=== PATIENT | female | born 1960 | race African-American/Black ===

== ENCOUNTER 2016-08-23 09:08 | Inpatient (IN) | payer OTHER ==
[2016-08-23] MEDS ORDERED: D50W SYRINGE ONE (09:42)
[2016-08-23] MEDS: D50W SYRINGE IV ONE ×2 (09:45→14:21)
[2016-08-23 10:50] LABS: MANUAL DIFF NEEDED? NO
[2016-08-23 10:58] LABS: BASO% 0.1 % (0.0-0.8); HEMATOCRIT 29.7 % (37.0-47.0); HEMOGLOBIN 9.8 g/dL (12.0-16.0); IMM GRAN# 0.03 X1000 (0.0-0.04); IMM GRAN% 0.3 % (0.0-0.5); LYMPH# 1.14 X1000 (1.2-3.4); MCH 30.3 PG (27-31); MONO# 0.68 X1000 (0.11-0.59); MONO% 7.1 % (1.7-9.3); MPV 11.8 FL (7.4-10.4); NEUT% 80.5 % (42.2-75.2); PLT 261 X1000 (130-400); RBC 3.23 XMIL (4.2-5.4)
[2016-08-23 12:24] LABS: URINE CULTURE NEEDED? NO; URINE MICRO REVIEW NEEDED? NO; URINE SOURCE CATH
--- NOTE | 2016-08-23 12:36 | Diag Imaging Result Document ---
PROCEDURE NAME: HEAD/C-SPINE W/O CONTRAST - 08/23/2016 CT HEAD WITHOUT CONTRAST: A dose-reduction protocol was used. Compared with 09/25/2014. FINDINGS: There are chronic microvascular ischemic changes similar to the previous exam. There is no evidence of recent infarct, although acute infarcts may not be immediately visible. There is no evidence of intracranial hemorrhage, mass effect, or midline shift. There is no skull fracture. IMPRESSION: Chronic microvascular ischemic changes similar to previous exam. No evidence of intracranial injury. No hemorrhage or mass effect. CT CERVICAL SPINE WITHOUT CONTRAST: Axial and reformatted sagittal and coronal images are obtained. A dose-reduction protocol was used. No comparison exam. FINDINGS: There are artifacts from motion at the C1 and C2 levels which limit detail. There is multilevel degenerative disease. The degenerative disease is most prominent at C4-5, where there are large anterior osteophytes, and there is posterior disk protrusion with posterior osteophytes. There is associated mild spinal stenosis at C4-5. There is no fracture identified. There is no subluxation seen. There is no precervical soft tissue swelling identified. There are apparent atherosclerotic calcifications noted at the right carotid bulb region. IMPRESSION: 1. Multilevel degenerative disease, most substantial at C4-5. 2. Artifacts from motion which limit detail at C1 on C2. No fracture identified. No subluxation.
--- NOTE | 2016-08-23 12:38 | Diag Imaging Result Document ---
PROCEDURE NAME: PELVIS W/O CONTRAST - 08/23/2016 CT BONY PELVIS WITHOUT CONTRAST: Axial and reformatted coronal and sagittal images are obtained. A dose-reduction protocol was used. No comparison exam. FINDINGS: There is no fracture identified. There is no hip dislocation seen. There are degenerative changes of L4-5 facets noted. IMPRESSION: No evidence of fracture or dislocation.
[2016-08-23 12:51] LABS: BILIRUBIN URINE SMALL (NEGATIVE); BLOOD URINE NEGATIVE (NEGATIVE); COLOR YELLOW; GLUCOSE URINE TRACE mg/dL (NEGATIVE); LEUKOCYTES URINE NEGATIVE (NEGATIVE); NITRITE URINE NEGATIVE (NEGATIVE); PH URINE 5.5; PROTEIN URINE 50 mg/dL (NEGATIVE); SP GRAVITY URINE 1.022; TURBIDITY URINE HAZY (CLEAR); UR EPITHELIAL CELLS <10 /HPF (<10); URINE BACTERIA NEGATIVE /HPF; URINE RBC <10 /HPF (<10); URINE WBC <10 /HPF (<10); UROBILINOGEN URINE NORMAL (NORMAL)
--- NOTE | 2016-08-23 13:03 | PROVIDER DOCUMENTATION ---
HPI-Musculoskeletal Pain/Inj - GENERAL Source: patient, EMS - HX OF PRESENT ILLNESS-MUSKULOSKELTAL Quality of Pain: reports: aching Severity in ED: mild Onset/Duration: 4-6 hours ago Timing: still present Modifying Factors: improves with: movement Any recent injury?: Yes Similar Symptoms Previously?: No Recently seen or treated by another doctor?: No - FALL INJURY Location of Pain/Injury: reports: lower extremity Pain Radiation: reports: no radiation Reason for Fall: reports: unknown Symptoms prior to fall:: reports: none Loss of Consciousness: no loss of consciousness Injury Associated Symptoms: denies: back/neck pain, dizziness, shortness of breath, weakness - HIP/PELVIS PAIN/INJURY Hip Pain Location: reports: hip (R), hip (L) Pain Radiation: reports: no radiation Context / Method of Injury: reports: fall Associated Symptoms: reports: denies symptoms - LOWER EXTREMITY PAIN/INJURY Lower Extremities Pain: hip: bilateral Context / Method of Injury: reports: fell Associated Symptoms: reports: denies symptoms <Doyle Mclean - Last Filed: 08/23/16 13:59> <Rd Maldonado - Last Filed: 08/23/16 14:31> - GENERAL Chief Complaint: Hip Pain Stated Complaint: Fall/hip pain Time Seen by Provider: 08/23/16 09:08 - HX OF PRESENT ILLNESS-MUSKULOSKELTAL Nature of Presenting Problem: PT WAS FOUND IN THE FLOOR BY THE [facility] STAFF 3 FEET FROM HER BED PT IS [facility] WHEN THE [facility] STAFF MOVED THE PT BACK TO THE BED SHE WAS COMPLAINING OF RIGHT AND LEFT HIP PAIN MORE PAIN TO THE RIGHT HIP EMS WAS CALLED NO D STICK DONE BY [facility]P STAFF OR EMS WHEN BLOOD SUGAR WAS CHECKED IN THE ED IT WAS 20. (Doyle Mclean) Review of Systems - Adult - REVIEW OF SYSTEMS - ADULT Constitutional: denies: chills, fever, night sweats Eyes: denies: discharge, blurred vision, redness Ears, Nose, Mouth & Throat: denies: epistaxis, mouth swelling, throat swelling Cardiovascular: denies: chest pain, irregular heart rate, palpitations Respiratory: denies: cough, shortness of breath, wheezing Gastrointestinal: denies: abdominal pain, diarrhea, nausea, vomiting Genitourinary: denies: dysuria, flank pain, hematuria Musculoskeletal: reports: other (BILATERIAL HIP PAIN). denies: back pain, neck pain Integumentary: denies: hives, itching, rash Neurological: denies: dizziness/vertigo, loss of balance, syncope Psychiatric: denies: depression, emotional problems, suicidal thoughts <Doyle Mclean - Last Filed: 08/23/16 13:59> Past History - Adult - PAST MEDICAL HISTORY-ADULT Review of Records: reports: Nursing Assessment Review, Medications Reviewed Cardiovascular: reports: cardiac disease, CAD, CHF, HTN, hyperlipidemia, other ( 2 occluded) Respiratory: reports: asthma Musculoskeletal: reports: arthritis Neurological: reports: CVA (2 mos ago/ rt sided weakness which has resolved), headaches/migraines Endocrine/Immune: reports: Diabetes, thyroid disorder Other Conditions: reports: MRSA - PRIOR SURGERIES/PROCEDURES Surgical/Procedure History: reports: cardiac stent, hysterectomy, BTL, , other (left breast cyst removed.) - IMMUNIZATION STATUS Childhood Immunizations: NUTD Flu Vaccine: NUTD - FAMILY HISTORY Family History: reviewed, not pertinent - SOCIAL HISTORY Smoking: denies Substance Use: none/never Living Situation: care facility <Doyle Mclean - Last Filed: 08/23/16 13:59> Physical Exam-Injury Related - Physical Exam-Injury Related Initial Vital Signs Reviewed: Yes General Appearance: appears well, alert, no apparent distress Eyes: PERRL/EOMI, pink conjunctivae, fundi clear, no AV nicking Head, Ears, Nose, Mouth & Throat: normocephalic/atraumatic, moist mucous membranes, normal ENT inspection, TMs normal Neck: non-tender, full range of motion, supple, normal inspection Respiratory: chest non-tender, lungs clear, normal breath sounds, no pleuratic chest pain, no respiratory distress, no accessory muscle use Cardiovascular: normal peripheral pulses, regular rate, rhythm, no edema, no gallop, no JVD, no murmur Abdominal Exam: normal bowel sounds, non tender, soft, no organomegaly, no pulsatile mass Back Exam: normal inspection, no CVA tenderness, no vertebral tenderness Extremity: normal gait, no pedal edema, no calf tenderness, normal capillary refill, pelvis stable, other (painfull range of motion) Integumentary: normal color, warm/dry Psych/Mental Status: normal mood/affect - Glascow Coma Score Best Eye Response (Pito): (4) open spontaneously Best Verbal Response (Pito): (4) confused conversation Best Motor Response (Ptio): (6) obeys commands Bailey Total: 14 <Doyle Mclean - Last Filed: 08/23/16 13:59> Progress - REASSESSMENT Reassessment #1 Time Reassessed: 11:00 (um=698 after iv meds) Status: improving Reassessment #2 Time Reassessed: 13:00 (pt still not eating her meal) Status: improving Reassessment #3 Time Reassessed: 14:26 (pt bs down to 58...still not cooperating w/her po intake ...pt w k=6.4 and renal disfx ,on po hypoglycemiant ..will admit) Status: worsening - CONSULTS/PCP/HOSPITALIST Notification #1 *Consult/PCP/Hospitalist*: dr bowen Time Discussed: 14:28 Consult Disposition: Will see in ED, Admit <Rd Maldonado - Last Filed: 08/23/16 14:31> Departure <Doyle Mclean - Last Filed: 08/23/16 13:59> - Departure Time of Disposition Order: 14:28 Certified Medical Emergency: Emergent <Rd Maldonado - Last Filed: 08/23/16 14:31> - Departure DIAGNOSIS: Hypoglycemia secondary to sulfonylurea, Dementia, Poor ability to follow directions Disposition: ADMITTED INPATIENT 09 Condition: Stable Physician Attestation
[2016-08-23 13:24] LABS: CALCIUM 9.4 mg/dL (8.8-10.2); POTASSIUM 6.2 mmol/L (3.5-5.1); TOTAL BILIRUBIN 0.36 mg/dL (0.20-1.00); TOTAL PROTEIN 6.2 g/dL (6.3-8.3)
--- NOTE | 2016-08-23 13:38 | Diag Imaging Result Document ---
PROCEDURE NAME: CHEST-PORTABLE - 08/23/2016 PORTABLE CHEST: Compared with 09/08/2014. FINDINGS: Heart size is normal. There is left midlung granuloma from old granulomatous disease. The lungs otherwise appear clear. There is no pleural effusion or pneumothorax identified. IMPRESSION: No evidence of acute disease.
[2016-08-23] MEDS: D5 NS 500 ML IV ONE ×2 (14:21→15:23)
[2016-08-23] MEDS ORDERED: D50W SYRINGE IV ONE (14:21)
[2016-08-23] MEDS ORDERED: SODIUM BICARBONATE 8.4% IV PUSH ONE (14:21)
[2016-08-23] MEDS ORDERED: CALCIUM CHLORIDE 1 GM in NS 100 ML IV ONE (14:22)
[2016-08-23] MEDS ORDERED: KAYEXALATE PO ONE (14:22)
[2016-08-23] MEDS ORDERED: D5 NS 1,000 ML ONE (15:16)
--- NOTE | 2016-08-23 17:41 | Diag Imaging Result Document ---
PROCEDURE NAME: FEMUR MIN 2 VIEWS RIGHT - 08/23/2016 RIGHT FEMUR, 4 VIEWS: FINDINGS: There is no fracture identified. There is no hip dislocation identified. There is no destructive or sclerotic lesion identified. IMPRESSION: Unremarkable exam.
[2016-08-23 18:15] LABS: UR CREAT RANDOM 377.6 mg/dL (11-20)
[2016-08-23] MEDS ORDERED: TYLENOL PO PRN (18:20)
[2016-08-23] MEDS ORDERED: D50W SYRINGE IV PRN (18:20)
[2016-08-23] MEDS ORDERED: ZOFRAN IV PRN (18:20)
[2016-08-23] MEDS: NS 1,000 ML IV SCH (18:35)
[2016-08-23 19:52] LABS: CALCIUM 10.2 mg/dL (8.8-10.2); POTASSIUM 4.5 mmol/L (3.5-5.1)
--- NOTE | 2016-08-23 20:29 | HISTORY AND PHYSICAL ---
PRIMARY CARE PROVIDER: Dr. Sophie Russo. CHIEF COMPLAINT: Fall and low blood glucoses. HISTORY OF PRESENT ILLNESS: Ms Yola Thornton is a 55-year-old female with a history of hypertension, asthma, diabetes, CVA, hyperlipidemia, a history of cocaine use, history of anemia who has been residing at [facility]. Apparently according to the hospice staff that is at the bedside she has had falls over the last 2-3 days. She had fallen at 0530 this morning. The nurse at the bedside her hospice care nursing team states that she just seemed different. She was wobbling. Upon arrival her blood glucose is 20. She has received D50, it continues to occasionally drop. Also it is found that she is significantly dehydrated with PILAR and hyperkalemic. She received bicarb and calcium and D50 to aid in decreasing the potassium level. Per outside hospital care she has been followed by [facility] who is stating that she is a do not resuscitate. The sisters are at the bedside who agree. Will admit her to the medical floor, give her IV fluid hydration, continue to treat her hypoglycemia and stop her oral diabetic medications. Continue to trend her potassium level and her BUN and creatinine. PAST MEDICAL HISTORY: Diabetes, hypertension, asthma, stroke, hyperlipidemia, anemia, cocaine use in the past, dementia. SURGICAL HISTORY: None. SOCIAL HISTORY: Denies tobacco, alcohol or illicit drug use. Is currently with [facility] and residing at [facility] . FAMILY HISTORY: Noncontributory. ALLERGIES: No known drug allergies. HOME MEDICATIONS: Aspirin 325 p.o. daily, Aricept 10 mg p.o. daily, Celexa 20 mg p.o. daily, Amaryl 1 mg p.o. daily, Lipitor 80 mg p.o. nightly, lisinopril 20 mg p.o. daily, metformin 500 mg p.o. twice daily, Seroquel 25 mg p.o. nightly, Synthroid 75 mcg p.o. daily, Norvasc 10 mg p.o. daily. Please add to past medical history dementia. REVIEW OF SYSTEMS: 14 point review of systems were all negative except those mentioned above HPI. She denies pain but when she tried to move her right leg she felt pain. Otherwise negative. She states she remembers falling. Never lost consciousness. LABORATORY DATA: White blood cells 9000, hemoglobin 9, hematocrit 29, platelet count 261,000. Sodium 137, potassium 6.2, BUN 52, creatinine 3.9, glucose 62 to 204, liver enzymes normal, total protein 6.2, albumin 3.0. Urinalysis 50 protein, trace glucose, small bilirubin otherwise negative. IMAGING: Chest x-ray, no acute findings. Pelvic CT. No evidence of fracture or dislocation. Head and cervical spine CT. Multilevel degenerative disease most substantial at C4-C5 and chronic microvascular ischemic changes similar to previous examination. No evidence of intracranial injury, no hemorrhage or mass effect. PHYSICAL EXAMINATION: VITAL SIGNS: Temperature 97.3 degrees, heart rate 113, respiratory rate 16, blood pressure 109/70, O2 saturation 100% on room air. She is 5 feet 4 inches tall, 190 pounds with a BMI 32.6. GENERAL: Ms. Yola Thornton is a 55-year-old female in no acute distress able to answer most questions appropriately. She does have baseline dementia. HEENT: Atraumatic, normocephalic. Pupils equal, round, reactive to light. Extraocular movements intact. Mucous membranes are dry. NECK: No JVD or carotid bruits noted. CARDIOVASCULAR: S1, S2, tachycardic rate, rhythm, no rubs, gallops, murmurs. PULMONARY: Clear to auscultate, bilateral breath sounds. No accessory muscle use or work of breathing noted. GI: Soft, nontender, nondistended. Positive bowel sounds x4. EXTREMITIES: No edema noted, +2 dorsalis and radial pulses. NEUROLOGIC: A and O times name only. Followed commands. Is able to move all extremities except for her right leg she would move it some but would not move it completely given that it would cause her pain. SKIN: Warm, dry, intact. ASSESSMENT AND PLAN: 1. Acute kidney injury likely secondary to dehydration. Will do IV fluid hydration, send off urine studies to determine if it is prerenal, stopped nephrotoxic medications. 2. Hypoglycemia possibly causing a fall. She did have a blood glucose of 20. She has received D50. Will do q.2 hour Accu-Cheks with p.r.n. D50. 3. Fall. She will be on fall precautions. There is some pain in her right leg, pelvic CT was negative. Will do an x-ray of the femur. 4. Diabetes mellitus type 2. Please see #2. 5. Hyperkalemia. She received IV calcium and D50 and bicarb, will recheck a BMP at 8 p.m. 6. Hypertension stable. 7. Asthma stable. 8. Dementia. Continue home medications. 9. Deep venous thrombosis prophylaxis. Will do SCDs. 10. Gastrointestinal prophylaxis. Proton pump inhibitor. 11. Do Not Resuscitate level 1. Was on hospice care prior to admission. 12. Anemia noted. Dictated by [employer] for Mark Flores MD
[2016-08-23] MEDS: SEROQUEL PO SCH (21:39)
[2016-08-23] MEDS: LIPITOR PO SCH (21:39)
[2016-08-24] MEDS: PRILOSEC PO SCH (05:59)
[2016-08-24 06:50] LABS: MANUAL DIFF NEEDED? NO
[2016-08-24 06:52] LABS: BASO% 0.1 % (0.0-0.8); EOS# 0.01 X1000 (0.0-0.7); EOS% 0.1 % (0.0-10.0); HEMATOCRIT 28.4 % (37.0-47.0); HEMOGLOBIN 9.3 g/dL (12.0-16.0); IMM GRAN# 0.03 X1000 (0.0-0.04); IMM GRAN% 0.4 % (0.0-0.5); LYMPH% 17.8 % (20.5-51.1); MCH 29.6 PG (27-31); MCHC 32.7 g/dL (33-37); MCV 90.4 FL (81-99); MONO# 0.83 X1000 (0.11-0.59); MONO% 11.3 % (1.7-9.3); MPV 11.3 FL (7.4-10.4); NEUT% 70.3 % (42.2-75.2); PLT 327 X1000 (130-400); RBC 3.14 XMIL (4.2-5.4)
[2016-08-24 06:57] LABS: INR 1.21; PROTIME 12.8 Seconds (9.2-11.7)
[2016-08-24 07:07] LABS: ALBUMIN 2.9 g/dL (3.5-5.0); CALCIUM 9.7 mg/dL (8.8-10.2); MAGNESIUM 1.6 mg/dL (1.5-2.7); POTASSIUM 4.9 mmol/L (3.5-5.1); TOTAL BILIRUBIN 0.47 mg/dL (0.20-1.00); TOTAL PROTEIN 6.6 g/dL (6.3-8.3)
[2016-08-24] MEDS: ARICEPT PO SCH (09:08)
[2016-08-24] MEDS: CELEXA PO SCH (09:08)
[2016-08-24] MEDS: SYNTHROID PO SCH (09:08)
[2016-08-24] MEDS: NORVASC PO SCH (09:08)
[2016-08-24] MEDS: ASPIRIN PO SCH (09:08)
--- NOTE | 2016-08-24 13:52 | PROGRESS NOTE ---
DATE: 08/24/2016 SUBJECTIVE: Patient reports feeling fine. Denies any pain. Reports not good appetite. OBJECTIVE: Vital Signs: Temperature 97.8 degrees, heart rate 102, respiratory rate 20, blood pressure 117/61. O2 saturation 94% on room air. General Examination: This is a 55-year-old, chronically ill-looking, female lying in bed, in no acute distress. HEENT: Head is normocephalic, atraumatic. Anicteric sclerae and pale conjunctivae. Mucous membranes moist. Neck: Supple. No JVD noted. No carotid bruits. No lymphadenopathy. No thyromegaly. Cardiovascular: S1, S2 heard. No murmurs, gallops, or rubs. Regular rate and rhythm. Respiratory: Clear bilaterally to auscultation. No work of breathing or using accessory muscles. Abdomen: Soft, nontender to palpation. Bowel sounds present. No organomegaly. Extremities: No clubbing, cyanosis, or edema. Peripheral pulses present in both legs. Neurological: The patient is awake. Follows commands. Moves her extremities. LABORATORY DATA: White cell count 7.32, hemoglobin 11.3, hematocrit 28.4, platelets 327,000. Sodium 142, potassium 4.9, chloride 108, bicarbonate 20, BUN 46, creatinine 2.3. ASSESSMENT AND PLAN: 1. Acute kidney injury. 2. Recurrent hypoglycemia. 3. Diabetes mellitus type 2. 4. Hypertension. 5. Asthma. 6. Dementia. PLAN: Patient was recently admitted to the hospital because she had a fall while she was in [facility]. The patient also was found to have a low sugar that was dropping. patient was admitted to the hospital and started on D5 and by now, the glucose is better controlled. Patient is on Amaryl and by now we have stopped that medication pain and probably in next 24 hours the glucose will be definitely more stable. Because of failure to thrive patient is refusing to eat any food. We have had an extensive conversation with the family and so we are agreed to have a PEG tube placement. We are going to consult GI today. For diabetes we will continue with sliding scale insulin. For hypertension, asthma and dementia we will continue basically with home medications.
[2016-08-24] MEDS: NS 1,000 ML IV SCH ×2 (18:04→22:01)
[2016-08-24] MEDS: SEROQUEL PO SCH (22:00)
[2016-08-24] MEDS: LIPITOR PO SCH (22:00)
--- NOTE | 2016-08-24 22:12 | CONSULTATION ---
DATE OF CONSULTATION: 08/24/2016 HISTORY OF PRESENT ILLNESS: We were asked to evaluate this 55-year-old lady with a history of hypertension, asthma, diabetes, CVA, hyperlipidemia and anemia who is at [facility]. According to the staff, the patient has not been eating anything much for the last 2 months. She got hypoglycemic and fell down. On arrival, her glucose was 20, which was she was resuscitated. PAST MEDICAL HISTORY: Diabetes, hypertension, asthma, stroke, hyperlipidemia, anemia, cocaine use, dementia. SURGICAL HISTORY: None. SOCIAL: Denies tobacco, alcohol but did use cocaine in the past. She is currently in [facility] and residing at [facility]. FAMILY HISTORY: Noncontributory. ALLERGIES: None. HOME MEDICATIONS: Aspirin 325 p.o. daily. Aricept 10 daily. Celexa 20 daily. Lipitor 80 daily. Lisinopril 20 daily. Metformin 500 p.o. twice daily. Synthroid 75 mcg daily. Norvasc 10 daily. REVIEW OF SYSTEMS: Fourteen point review of systems was all negative other than HPI. However, patient looks very weak. PHYSICAL EXAMINATION: Vital Signs: Temp 97.3 degrees, heart 100, respiratory rate 16, blood pressure 110/70, O2 saturation 100% on room air. HEENT: Mild conjunctival pallor present. Mucous membranes are dry. Neck: Supple. Trachea midline. No goiter. Heart: Normal S1, S2. Hyperdynamic heart sounds. However, there is slight tachycardia. No murmurs. Lungs: Clear. Abdomen: Soft, nontender, scaphoid. Extremities: No edema. Neurological: Alert and oriented, but she is quite weak, not responding much, but no focal deficit. However, she is moving all extremities. LABORATORY DATA: On admission, white count 9000, hemoglobin 9, hematocrit 29, potassium is 6.2, BUN 52, creatinine 3.9, albumin 3.01. IMPRESSION AND PLAN: 1. Acute kidney injury secondary to dehydration. 2. Hypoglycemia, secondary to inanition. 3. Fall secondary to hypoglycemia. 4. Diabetes mellitus. 5. Hyperkalemia. 6. Hypertension. 7. Asthma. 8. Dementia. 9. Deep venous thrombosis prophylaxis. 10. Gastrointestinal prophylaxis. We were mainly asked and I talked to the family at length to sustain her nutrition we may have to put a percutaneous endoscopic gastrostomy tube. The patient, however, unable to give a consent on her own. I talked to the family and we will get a permit and will plan a percutaneous endoscopic gastrostomy tube and then nourish her and also give her enough fluids through the gastrostomy tube to reverse the acute kidney injury. We will work up the anemia later.
[2016-08-25] MEDS: PRILOSEC PO SCH (06:31)
--- NOTE | 2016-08-25 07:32 | EKG Report ---
Test Performed on : 08/23/2016 11:16:26 AM Test Reason : Re-Ordered Blood Pressure : / mmHG Vent. Rate : 096 BPM Atrial Rate : 096 BPM P-R Int : 122 ms QRS Dur : 070 ms QT Int : 368 ms P-R-T Axes : 059 035 066 degrees QTc Int : 464 ms Normal sinus rhythm. Normal ECG No previous ECGs available Unconfirmed Result
[2016-08-25] MEDS ORDERED: DULCOLAX PR ONE (10:18)
--- NOTE | 2016-08-25 13:14 | PROGRESS NOTE ---
DATE: 08/25/2016 SUBJECTIVE: Patient is currently resting in bed. She has poor oral intake. She has been constipated. OBJECTIVE: Vital signs: Temperature of 98.2 degrees, pulse rate of 106, respiratory rate 16, blood pressure 104/65, saturating 98% on room air. General Appearance: Moderately built, moderately nourished, lying in bed, in no acute distress. HEENT: Pale conjunctivae. No icterus. Neck: Supple. Abdomen: Mildly obese, soft, nontender. Hypoactive bowel sounds. Extremities: No cyanosis, clubbing. Neurologic: She is awake and answers questions. LABS: Hemoglobin and hematocrit is 9.3 and 28.4, white count of 7.3, platelet count of 327,000. Blood glucose of 126. Albumin was 2.9 on admission on 08/24. IMPRESSION AND PLAN: 1. Decreased p.o. intake, dysphagia. In this regard, we will get a speech consult with swallow evaluation today. We will keep her on aspiration precautions. If she fails swallow evaluation will schedule her for EGD with PEG tube tomorrow by Dr. Vazquez. 2. Constipation. patient on Dulcolax suppository. 3. Dementia. She will continue Aricept per the primary care team. 4. We will continue on gastrointestinal prophylaxis with Prilosec. The above plan was discussed with the patient and her family at bedside and all questions answered. We will also obtain a KUB of the abdomen today. 5. Further recommendations pending hospital course. MTDD
--- NOTE | 2016-08-25 14:54 | Diag Imaging Result Document ---
PROCEDURE NAME: KUBambi ABDOMEN - 08/25/2016 SUPINE RADIOGRAPH OF THE ABDOMEN AND PELVIS 1 VIEW: COMPARISON: 01/29/2014. FINDINGS: There are nonspecific bowel gas and stool patterns. There is no obstructive pattern. There is no evidence of large-volume free abdominal gas. There is no definite organomegaly. IMPRESSION: Nonspecific abdomen.
[2016-08-25] MEDS ORDERED: NS 250 ML ONE (14:57)
[2016-08-25] MEDS: ASPIRIN PO SCH (15:30)
[2016-08-25] MEDS: CELEXA PO SCH (15:30)
[2016-08-25] MEDS: ARICEPT PO SCH (15:30)
[2016-08-25] MEDS: NORVASC PO SCH (15:31)
[2016-08-25] MEDS: SYNTHROID PO SCH (15:31)
[2016-08-25] MEDS: NS 1,000 ML IV SCH (15:31)
--- NOTE | 2016-08-25 15:52 | PROGRESS NOTE ---
DATE: 08/25/2016 SUBJECTIVE: Patient is feeling fine. She is not verbal. Just answers yes to almost everything. Denies any chest pain. OBJECTIVE: Vital Signs: Temperature 97.5 degrees, heart rate 105, respiratory rate 19, blood pressure 110/72, O2 saturation 94% on room air. General Examination: This is a 55-year-old, chronically ill-looking, female lying in bed, in no acute distress. HEENT: Head is normocephalic, atraumatic. Anicteric sclerae and pale conjunctivae. Mucous membranes moist. Neck: Supple. No JVD noted. No carotid bruits. No lymphadenopathy. No thyromegaly. Cardiovascular: S1, S2 heard. No murmurs, gallops, or rubs. Regular rate and rhythm. Respiratory: Clear bilaterally to auscultation. No work of breathing or using accessory muscles. Abdomen: Soft, nontender to palpation. Bowel sounds present. No organomegaly. Extremities: No clubbing, cyanosis, or edema. Peripheral pulses present in both legs. Neurological: Patient is awake, does follow commands. Moves 4 extremities. LABORATORY DATA: There are no labs from today. ASSESSMENT AND PLAN: 1. Recurrent hypoglycemia. 2. Diabetes mellitus type 2. 3. Acute kidney injury. 4. Hypertension. 5. Asthma. 6. Dementia. 7. Failure to thrive. PLAN: The patient was admitted to the hospital because she had a fall while she was in [facility]. Patient was found to have a low sugar and although they tried to increase it by giving D50, the patient persisted to be hypoglycemic. Patient takes Amaryl. Patient was on D5, IV fluid and slowly this condition corrected. Also family reports that this patient is not able to eat properly, so finally after a long conversation with them, we agreed to proceed with a PEG tube placement. Dr. Vazquez has been consulted and finally Dr. Mason is going to place a PEG tube most probably tomorrow morning. After that, considering her history of early dementia, I think she can be discharged back to her rehab facility.
[2016-08-25] MEDS: DULCOLAX PR SCH (21:32)
[2016-08-25] MEDS: SEROQUEL PO SCH (21:33)
[2016-08-25] MEDS: LIPITOR PO SCH (21:33)
[2016-08-26] MEDS: NS 1,000 ML IV SCH (05:56)
[2016-08-26] MEDS: PRILOSEC PO SCH (06:27)
[2016-08-26 07:08] LABS: MANUAL DIFF NEEDED? NO
[2016-08-26 07:09] LABS: BASO% 0.2 % (0.0-0.8); EOS# 0.03 X1000 (0.0-0.7); EOS% 0.5 % (0.0-10.0); HEMATOCRIT 27.4 % (37.0-47.0); HEMOGLOBIN 8.8 g/dL (12.0-16.0); IMM GRAN# 0.05 X1000 (0.0-0.04); IMM GRAN% 0.8 % (0.0-0.5); LYMPH# 1.79 X1000 (1.2-3.4); LYMPH% 29.2 % (20.5-51.1); MCH 29.6 PG (27-31); MCHC 32.1 g/dL (33-37); MCV 92.3 FL (81-99); MONO# 0.55 X1000 (0.11-0.59); MPV 11.1 FL (7.4-10.4); NEUT% 60.3 % (42.2-75.2); PLT 351 X1000 (130-400); RBC 2.97 XMIL (4.2-5.4)
[2016-08-26 07:27] LABS: AGAP 16; BUN 33 mg/dL (8-22); CALCIUM 8.8 mg/dL (8.8-10.2); CHLORIDE 116 mmol/L (98-107); COSMO 312; POTASSIUM 4.4 mmol/L (3.5-5.1); SODIUM 152 mmol/L (136-145); TCO2 20 mmol/L (25-35)
[2016-08-26] MEDS: D5W 1,000 ML IV SCH ×2 (11:36→23:24)
--- NOTE | 2016-08-26 13:44 | PROGRESS NOTE ---
DATE: 08/26/2016 SUBJECTIVE: Patient is nonverbal today. Apparently as per family who is at bedside she is doing fine. OBJECTIVE: Vital Signs: Temperature is 97.5 degrees, heart rate 103, respiratory rate 18, blood pressure 139/64, O2 saturation 94% on room air. General Examination: This is a 55-year-old, chronically ill-looking and frail, female lying in bed, in no acute distress. HEENT: Head is normocephalic, atraumatic. Anicteric sclerae. Pale conjunctivae. Mucous membranes dry. Neck: Supple. No JVD noted. No carotid bruits. No lymphadenopathy. No thyromegaly. Cardiovascular: S1, S2 heard. No murmurs, gallops, or rubs. Regular rate and rhythm. Respiratory: Clear bilaterally to auscultation. No work of breathing or using accessory muscles. Abdomen: Soft, nontender to palpation. Bowel sounds present. No organomegaly. Extremities: No clubbing, cyanosis, or edema. Peripheral pulses present in both legs. Neurological: Patient moves 4 extremities. She is nonverbal and there is no way to make sure that she is oriented but she is awake. LABORATORY DATA: White cell count 6.14, hemoglobin 8.8, hematocrit 27.4, platelets 351,000. Sodium 152, potassium 4.4, chloride 116, bicarb 20, BUN 33, creatinine 1.0. ASSESSMENT: 1. Recurrent hypoglycemia. 2. Diabetes mellitus type 2. 3. Acute kidney injury. 4. Hypertension. 5. Asthma. 6. Dementia. 7. Failure to thrive. 8. Hypernatremia. PLAN: The patient was admitted to the hospital because of a fall and she was found to be hypoglycemic. Initially during the 1st day to 2 days we had her on D5 but now she is on normal saline. In terms of renal function, the creatinine is back to normal. I think because this patient is not getting enough fluids the sodium is higher and so because of this obvious dehydration, we will switch fluids to D5W. We are going to check BMP tomorrow. For the problem with nutrition, patient does not want to eat anything. Family was okay to consult GI to have a PEG tube placed. That is going to be today. Then considering her overall medical conditions, I think she can go back to her custodial.
[2016-08-26] MEDS ORDERED: MYLICON DROPS (DOSE) MISC ONE (14:37)
[2016-08-26] MEDS ORDERED: DIPRIVAN 1% ONE (14:56)
[2016-08-26] MEDS ORDERED: ANESTHESIA PB SET 88 IN 5742 ONE (16:06)
[2016-08-26] MEDS ORDERED: LR 1,000 ML ONE (16:06)
[2016-08-26] MEDS: ASPIRIN PO SCH (17:28)
[2016-08-26] MEDS: NORVASC PO SCH (17:28)
[2016-08-26] MEDS: CELEXA PO SCH (17:28)
[2016-08-26] MEDS: ARICEPT PO SCH (17:28)
[2016-08-26] MEDS: SYNTHROID PO SCH (17:29)
[2016-08-26] MEDS: MORPHINE IV PRN (19:24)
[2016-08-26] MEDS: DULCOLAX PR SCH (21:00)
[2016-08-26] MEDS: LIPITOR PO SCH (21:00)
[2016-08-26] MEDS: SEROQUEL PO SCH (21:00)
[2016-08-27] MEDS: HUMALOG SUBQ SCH ×6 (05:05→21:59)
[2016-08-27 06:38] LABS: MANUAL DIFF NEEDED? NO
[2016-08-27] MEDS: PRILOSEC PO SCH (06:48)
[2016-08-27 07:03] LABS: BASO% 0.1 % (0.0-0.8); EOS# 0.03 X1000 (0.0-0.7); EOS% 0.4 % (0.0-10.0); HEMATOCRIT 24.6 % (37.0-47.0); HEMOGLOBIN 7.7 g/dL (12.0-16.0); IMM GRAN# 0.05 X1000 (0.0-0.04); IMM GRAN% 0.6 % (0.0-0.5); LYMPH# 1.81 X1000 (1.2-3.4); LYMPH% 22.9 % (20.5-51.1); MCH 29.4 PG (27-31); MCHC 31.3 g/dL (33-37); MCV 93.9 FL (81-99); MONO% 7.6 % (1.7-9.3); MPV 10.9 FL (7.4-10.4); NEUT% 68.4 % (42.2-75.2); PLT 302 X1000 (130-400); RBC 2.62 XMIL (4.2-5.4)
[2016-08-27 07:10] LABS: AGAP 13; BUN 12 mg/dL (8-22); CHLORIDE 109 mmol/L (98-107); COSMO 293; POTASSIUM 3.4 mmol/L (3.5-5.1); SODIUM 146 mmol/L (136-145); TCO2 24 mmol/L (25-35)
[2016-08-27] MEDS: D5W 1,000 ML IV SCH ×3 (10:31→21:58)
[2016-08-27] MEDS: ARICEPT PO SCH (10:32)
[2016-08-27] MEDS: SYNTHROID PO SCH (10:32)
[2016-08-27] MEDS: CELEXA PO SCH (10:32)
[2016-08-27] MEDS: NORVASC PO SCH (10:32)
[2016-08-27] MEDS: ASPIRIN PO SCH (10:32)
--- NOTE | 2016-08-27 16:07 | PROGRESS NOTE ---
DATE: 08/27/2016 SUBJECTIVE: Patient is resting in bed. Her family is at the bedside. She is planning to care home on hospice, [facility] is talking to them at this time. She has been started on tube feeds, she is tolerating it well so far. OBJECTIVE: Temperature 99.2 degrees, pulse rate of 103, respiratory rate 18, blood pressure 120/68, saturating 100% on room air.General Appearance: Thinly built, moderately well nourished, lying in bed, in no acute distress. HEENT: There is no icterus. Neck: Is supple. Abdomen: Abdominal binder in place. PEG tube site appears normal. The patient is on tube feeds and tolerating well. Extremities: No cyanosis or clubbing. Neurologic: She was sleepy but was able to wake up on command. IMPRESSION AND PLAN: 1. Dysphagia. Status post PEG tube placement on 08/26/[address] Vazquez. We will continue abdominal binder all the time. Continue aspiration precautions. She will continue on nutrition followups for managing her tube feeds. We will continue her on gastrointestinal prophylaxis. 2. Continue bowel regimen with Dulcolax. 3. Diabetes type 2, with hypoglycemia, acute kidney injury, hypertension, asthma , dementia per the primary team. 4. The above plan discussed with the patient and his family. Please call us if any questions. [facility]ON HOSPITALMakeda
[2016-08-27] MEDS: MORPHINE IV PRN (21:58)
[2016-08-27] MEDS: DULCOLAX PR SCH (21:59)
[2016-08-27] MEDS: LIPITOR PO SCH (21:59)
--- NOTE | 2016-08-27 21:59 | DISCHARGE SUMMARY ---
ADMISSION DATE: 08/23/2016 DISCHARGE DATE: 08/27/2016 CONSULTATIONS: Rupinder Vazquez M.D., Gastroenterology. PERTINENT PROCEDURES: 1. Cervical spine CT shows multilevel degenerative disease most essential at C4 through 5. Artifacts from motion was limited due to C1 on C2. No fracture identified. No subluxation. 2. Pelvic CT showed no evidence of fracture or dislocation. 3. Femur x-ray was unremarkable. 4. Abdominal x-ray: Nonspecific abdomen. 5. EGD status post percutaneous endoscopic gastrostomy tube for dysphagia and failure to thrive. DISCHARGE DIAGNOSES: 1. Dysplasia. Patient is status post PEG tube placement with tube feedings. 2. Failure to thrive status post PEG tube placement secondary to dysphagia. 3. Recurrent hypoglycemia improved. 4. Acute kidney injury improved. 5. Hypertension stable. 6. Asthma stable. 7. Dementia stable. 8. Hypernatremia improved. 9. DNR level 1. Patient was on hospice prior to admission. HOSPITAL COURSE: Ms. Yola Thornton is a 55-year-old, female with a history of hypertension, asthma, diabetes mellitus, CVA, hyperlipidemia, history of cocaine use, history of anemia, who has been residing at [facility]. According to the hospice staff who was at the bedside the patient had fallen over the last 2-3 days prior to admission. She had fallen at 5:30 in the morning. Nurse was at the bedside. Hospice Care Nursing Team states that she just seemed different. She was wobbling. Upon arrival her glucose was 20. She received D50. It continues to occasionally drop. She was also found to be significantly dehydrated with acute kidney injury and hypokalemic. She received bicarb, calcium and D50 to aid in decrease of the potassium level. She was followed by [facility] who stated that she was a Do Not Resuscitate. The sister at the bedside agrees. The patient was admitted to the medical floor and given IV fluid hydration and continued to treat her hypoglycemia and stop her oral diabetic medications. Continue to trend her potassium as well as BUN and creatinine level. Patient was placed on fall precautions. All patient's scans were negative for any injury. Again her diabetic medications were stopped. Patient is failure to thrive. She is refusing any type of food. She is complaining of some dysphagia. The patient did agree to a PEG tube placement. GI was consulted. Dr. Vazquez discussed with family at length to sustain her nutrition that they would need to place a PEG tube. The patient was unable to give consent on her own. The family did permit and the patient did receive a PEG tube and feedings per Dietary. She was initiated on Glucerna 1.5 at 10 mL/h with 30 mL water flushes q.6. Then we will increase tube feeding as tolerated based on fallen lab values to meet 100% of her estimated nutrition needs. Dr. Cowan has assessed that the patient is appropriate for discharge today. VITAL SIGNS AT TIME OF DISCHARGE: Temperature is 98.1 degrees, heart rate 103, respirations 18, blood pressure 120/68, O2 is 100% on room air. DISCHARGE DIET: Through PEG tube feeding. Currently the patient is receiving Glucerna 1.5, 10 mL/h with 30 mL water flush q.6. Tube feeding should be increased based on lab values to a goal rate of 50 mL/h to provide 1800 k/nimisha, 99 g of protein, 910 mL of free water, the goal rate to maintain 100 mL/hour. That was set by the MD and flushes will need to be adjusted as appropriate with fluid needs. Of note, patient is not yet to heart goal. DISCHARGE MEDICATIONS: 1. Aspirin 325 mg p.o. daily. 2. Aricept 10 mg p.o. daily. 3. Celexa 20 mg p.o. daily. 4. Lipitor 80 mg p.o. at bedtime. 5. Lisinopril 20 mg p.o. daily. 6. Metformin 500 mg p.o. b.i.d. 7. Seroquel 25 mg p.o. at bedtime. 8. Synthroid 25 mcg p.o. daily. 9. Norvasc 10 mg p.o. daily. FOLLOWUP: 1. The patient is being discharged back to [facility] with PEG tube feedings prescribed as above. 2. Patient to return to ED for any worsening of symptoms. DISCHARGE TIME: Greater than 30 minutes. Dictated by TRAM Whyte for Mark Flores MD
[2016-08-27] MEDS: SEROQUEL PO SCH (22:00)
[2016-08-28] MEDS: HUMALOG SUBQ SCH ×5 (00:51→23:53)
[2016-08-28] MEDS: PRILOSEC PO SCH (06:04)
[2016-08-28 07:14] LABS: BASO% 0.1 % (0.0-0.8); EOS# 0.07 X1000 (0.0-0.7); EOS% 0.8 % (0.0-10.0); HEMATOCRIT 23.8 % (37.0-47.0); HEMOGLOBIN 7.5 g/dL (12.0-16.0); IMM GRAN# 0.11 X1000 (0.0-0.04); IMM GRAN% 1.2 % (0.0-0.5); LYMPH# 2.11 X1000 (1.2-3.4); LYMPH% 23.2 % (20.5-51.1); MANUAL DIFF NEEDED? YES; MCH 29.1 PG (27-31); MCHC 31.5 g/dL (33-37); MCV 92.2 FL (81-99); MONO# 0.54 X1000 (0.11-0.59); MONO% 5.9 % (1.7-9.3); MPV 11.1 FL (7.4-10.4); NEUT% 68.8 % (42.2-75.2); PLT 260 X1000 (130-400); RBC 2.58 XMIL (4.2-5.4)
[2016-08-28 07:20] LABS: AGAP 14; ALBUMIN 2.1 g/dL (3.5-5.0); ALKALINE PHOSPHATASE 97 U/L (32-104); BUN 8 mg/dL (8-22); CALCIUM 7.4 mg/dL (8.8-10.2); CHLORIDE 98 mmol/L (98-107); COSMO 272; GOT 19 U/L (10-30); GPT 14 U/L (10-36); MAGNESIUM 1.1 mg/dL (1.5-2.7); POTASSIUM 3.3 mmol/L (3.5-5.1); PREALBUMIN 6.8 mg/dL (20-40); SODIUM 134 mmol/L (136-145); TCO2 22 mmol/L (25-35); TOTAL BILIRUBIN 0.59 mg/dL (0.20-1.00); TOTAL PROTEIN 5.7 g/dL (6.3-8.3)
[2016-08-28] MEDS ORDERED: KLOR-CON POWDER PACKET PO ONE (07:30)
[2016-08-28 07:35] LABS: BANDS 2 % (0-1); LYMPHS 18 % (21-51); MONO 6 % (1-9)
[2016-08-28] MEDS: NORVASC PO SCH (08:38)
[2016-08-28] MEDS: SYNTHROID PO SCH (08:38)
[2016-08-28] MEDS: ARICEPT PO SCH (08:38)
[2016-08-28] MEDS: ASPIRIN PO SCH (08:38)
[2016-08-28] MEDS: CELEXA PO SCH (08:39)
[2016-08-28] MEDS: MORPHINE IV PRN ×2 (09:35→19:41)
--- NOTE | 2016-08-28 10:45 | PROGRESS NOTE ---
DATE: 08/28/2016 SUBJECTIVE: The patient is sitting up in bed, resting. No family is at bedside. The patient was set to return back to the senior living today with [facility]; however, the nurse checked her residuals. There were no residuals from her tube feeding, however, when she was flushing her bright orange medication, the patient projectile vomited orange medication. The patient states that she felt nauseous, vomited, and she states she is having no more nausea at this time. OBJECTIVE: Vital Signs: Temperature is 99.6 degrees, heart rate 107, respirations 19, blood pressure 109/56. O2 is 97% on room air. General: Ms. Thornton is a 55-year-old -[place] female. She is sitting up in the bed, resting. No complaints at this time. She did just have a bout of projectile vomiting after she was given medication. HEENT: Atraumatic, normocephalic. PERRL. Neck supple. Trachea midline. CV: No murmurs, gallops, or rubs noted. Respiratory: Lung sounds relatively clear. Bilaterally decreased in the bases. Abdomen: She does have an abdominal binder in place. The patient appeared to be tolerating her tube feeds. There were no residuals when the nurse just checked them; however, when she was flushing her medication, she projectile vomited bright orange which was the medicine that she was giving her. Her tube feeds have been placed on hold as well as medicines until GI rounds. Extremities: No cyanosis or clubbing noted. Neurologic: The patient was sleepy, but she did wake up appropriately. She did answer questions. ASSESSMENT AND PLAN: 1. Dysphagia. Status post PEG tube placement. The patient was getting tube feedings; however, again this morning, the nurse checked the residual and there was none. When she flushed the bright orange medicine, the patient projectile vomited bright orange medicine back up. Her tube feedings have been on hold for now as well as medications. We will consult with the screwhead polisher. 2. Recurrent hypoglycemia. Continued to do pattern blood sugars. 3. Diabetes mellitus, type 2. Continue pattern sugars. 4. Acute kidney injury, improved. 5. Hypertension, stable. 6. Asthma, stable. 7. Dementia, stable. 8. Hypernatremia, improved. 9. DO NOT RESUSCITATE LEVEL 1. The patient is on hospice at [facility] with [facility]. DISPOSITION: Pending GI re-evaluation of patient's PEG tube. Further recommendations to follow physician evaluation. Dictated by TRAM Whyte for Alejandro Myers MD
--- NOTE | 2016-08-28 11:34 | PROGRESS NOTE ---
DATE: 08/28/2016 SUBJECTIVE: Patient is currently resting in bed. This morning when she was given medication to the PEG tube she had a projectile vomiting after that and that is why her PEG tube feeding has not been increased. She is still getting 10 mL/h. She had a last bowel movement 2 days ago which was soft brown. Will get an abdominal x-ray today to look for constipation. Vitals: Temperature 99.6 degrees, pulse rate of 107, respiratory rate 19. Blood pressure 109/56, saturating 97% on room air. General Appearance: Moderately nourished, lying in bed, in no acute distress. HEENT: Mild pallor. No icterus. Neck: Supple. Abdomen: PEG tube in place. Abdominal binder in place. The PEG tube site appear healing well. No rebound. No guarding. Hypoactive bowel sounds. Extremities: No cyanosis, clubbing. Neurologic: She is alert and awake. Answers questions. LABS: Hemoglobin and hematocrit 7.5 and 23.8, white count 9.08, platelet count of 266,000. Sodium 134, potassium 3.3, chloride 98, bicarb 22, anion gap of 14, BUN of 8, creatinine 0.8, glucose of 205. Calcium 7.4, magnesium 1.1, phosphorus 1.2. AST 19, ALT 14, alkaline phosphatase 97, total protein 5.7, albumin of 2.1. Pre-albumin of 6.8. IMPRESSION AND PLAN: 1. Dysphagia status post PEG tube placement 08/26/2016. Currently having projectile vomiting. We will check a KUB today. We will start her on bowel regimen. We will give her a dose of Dulcolax now. 2. Anemia. Will continue to watch and transfuse as needed. 3. Bowel regimen. Will continue on GI prophylaxis with Protonix/omeprazole once daily. 4. We need to wean down her IV fluids once she is able to tolerate her tube feeds well. Further recommended pending hospital course. I discussed the findings with Dr. Chaparro and the nurse and all questions answered.
--- NOTE | 2016-08-28 11:49 | Diag Imaging Result Document ---
PROCEDURE NAME: KUB ABDOMEN - 08/28/2016 PORTABLE AP SUPINE ABDOMEN: COMPARISON: Compared to 08/25/2016. FINDINGS: There is air within the bowel loops in the mid and lower abdomen and pelvis. No obstruction. No organomegaly. No abnormal abdominal calcifications. The upper abdomen is not included on the exam. IMPRESSION: Negative study.
[2016-08-28] MEDS ORDERED: DULCOLAX PR ONE (11:56)
[2016-08-29] MEDS: HUMALOG SUBQ SCH ×3 (01:20→09:58)
[2016-08-29] MEDS: PRILOSEC PO SCH (06:20)
[2016-08-29 07:25] VITALS: BP 114/61
[2016-08-29] MEDS ORDERED: KLOR-CON POWDER PACKET PO ONE (07:44)
[2016-08-29 07:45] LABS: BASO% 0.1 % (0.0-0.8); EOS# 0.06 X1000 (0.0-0.7); EOS% 0.7 % (0.0-10.0); HEMATOCRIT 24.6 % (37.0-47.0); HEMOGLOBIN 7.9 g/dL (12.0-16.0); IMM GRAN# 0.12 X1000 (0.0-0.04); IMM GRAN% 1.4 % (0.0-0.5); LYMPH# 2.13 X1000 (1.2-3.4); LYMPH% 25.6 % (20.5-51.1); MANUAL DIFF NEEDED? YES; MCH 29.5 PG (27-31); MCHC 32.1 g/dL (33-37); MCV 91.8 FL (81-99); MONO# 0.66 X1000 (0.11-0.59); MONO% 7.9 % (1.7-9.3); MPV 10.9 FL (7.4-10.4); NEUT% 64.3 % (42.2-75.2); PLT 238 X1000 (130-400); RBC 2.68 XMIL (4.2-5.4)
[2016-08-29 08:01] LABS: AGAP 13; BUN 10 mg/dL (8-22); CALCIUM 7.7 mg/dL (8.8-10.2); CHLORIDE 99 mmol/L (98-107); COSMO 273; POTASSIUM 3.7 mmol/L (3.5-5.1); SODIUM 136 mmol/L (136-145); TCO2 24 mmol/L (25-35)
[2016-08-29] MEDS: SYNTHROID PO SCH (09:57)
[2016-08-29] MEDS: ARICEPT PO SCH (09:57)
[2016-08-29] MEDS: NORVASC PO SCH (09:57)
[2016-08-29] MEDS: ASPIRIN PO SCH (09:57)
[2016-08-29] MEDS: CELEXA PO SCH (09:57)
[2016-08-29 09:58] LABS: BANDS 2 % (0-1); LYMPHS 34 % (21-51); MONO 8 % (1-9)
[2016-08-29 11:02] LABS: MAGNESIUM 1.2 mg/dL (1.5-2.7)
--- NOTE | 2016-08-29 11:28 | DISCHARGE SUMMARY ---
ADMISSION DATE: 08/23/2016 DISCHARGE DATE: 08/29/2016 CONSULTATION: Dr. Vazquez with gastroenterology. PERTINENT PROCEDURES: EGD status post percutaneous endoscopic gastrostomy tube for dysphagia and failure to thrive. DISCHARGE DIAGNOSES: 1. Dysphagia status post percutaneous endoscopic gastrostomy tube placement with tube feedings. 2. Failure to thrive status post percutaneous endoscopic gastrostomy tube placement secondary to dysphagia. 3. Recurrent hypoglycemia, improved. 4. Acute kidney injury, improved. 5. Hypertension, stable. 6. Asthma, stable. 7. Dementia, stable. 8. Hyponatremia, improved. 9. Do not resuscitate level 1. Patient on hospice at [facility] prior to admission. HOSPITAL COURSE: Briefly, please see full H and P. Yola Thornton is a 55-year- old, female with a history of hypertension, anemia, diabetes mellitus, cerebrovascular accident, hyperlipidemia, history of cocaine use, history of anemia, who is a resident at [facility], who is on hospice. Prior to admission patient had fallen a couple of times. Her hospice care team stated that she just seemed different, wobbling. She did have some hypoglycemia. On arrival to the ED she received D 50. It still occasionally would drop and she was significantly dehydrated with an acute kidney injury. The patient was having some complaints of dysphagia, failure to thrive. She was refusing any type of food. The patient underwent a PEG tube placement by Dr. Vazquez. The patient was initiated on tube feedings. She did have 1 episode of projectile vomiting. Her tube feedings were held. A KUB was obtained that was negative. Patient was started on a bowel regimen. Her tube feedings were also initially stopped; they have been started back on Glucerna 1.5 at 10 mL per hour with 25 mL/hour flush. Her tube feeds will need to be increased as per [facility]. Her residuals will need to be checked every 4 hours. Please hold for residuals greater than 50 and contact attending physician for further instructions. Patient is being discharged back to [facility] today. VITAL SIGNS AT TIME OF DISCHARGE: Temperature is 99.9 degrees, heart rate 106, respirations 20, blood pressure is 114/61, O2 is 99% on room air. DISCHARGE MEDICATIONS: Please see MAR: Aspirin, Aricept, Celexa, Lipitor, lisinopril, Fortamet, Seroquel, Synthroid, Norvasc. DISCHARGE DIET: The discharge diet will be Glucerna 1.5 at 10 mL/hour. It will to be increased as tolerated per facility director. She will also get 25 mL/hour flushes. Hold for residuals greater than 100. These are to be checked q. 4 hours. FOLLOW UP: The patient is being discharged back to [facility] where she will go back on hospice. She is being discharged with the PEG tube. Patient to return to the ED for any worsening of symptoms. DISCHARGE TIME: Greater than 30 minutes. Dictated by TRAM Whyte for Alejandro Myers MD MTDD
== END 2016-08-29 13:16 | disposition hospice, inpatient (51) | DRG 683 ==
LOC: EDBD → ED 09:08 → 3N 17:03
PROVIDERS: ATTEND Internal Medicine
PROC: 0DH63UZ Insertion of Feeding Device into Stomach, Percutaneous Approach (ICD-10-PCS; principal; 2016-08-26 14:20)
DX: N17.9 Acute kidney failure, unspecified (principal); E87.0 Hyperosmolality and hypernatremia; R13.10 Dysphagia, unspecified; F03.90 Unspecified dementia, unspecified severity, without behavioral disturbance, psychotic disturbance, mood disturbance, and anxiety; E87.5 Hyperkalemia; E11.649 Type 2 diabetes mellitus with hypoglycemia without coma; I50.9 Heart failure, unspecified; I11.0 Hypertensive heart disease with heart failure; E86.0 Dehydration; J45.909 Unspecified asthma, uncomplicated; Z66 Do not resuscitate; D64.9 Anemia, unspecified; E78.5 Hyperlipidemia, unspecified; M79.604 Pain in right leg; R62.7 Adult failure to thrive; I25.10 Atherosclerotic heart disease of native coronary artery without angina pectoris; I73.9 Peripheral vascular disease, unspecified; E03.9 Hypothyroidism, unspecified; N18.9 Chronic kidney disease, unspecified; K59.00 Constipation, unspecified; Z51.5 Encounter for palliative care; Z86.73 Personal history of transient ischemic attack (TIA), and cerebral infarction without residual deficits; Z91.81 History of falling; Z79.84 Long term (current) use of oral hypoglycemic drugs; Z79.82 Long term (current) use of aspirin; Z79.899 Other long term (current) drug therapy; Z95.5 Presence of coronary angioplasty implant and graft
CPT/HCPCS: 36415; 36569; 70450; 71010; 72125; 72192; 74000; 80048; 80053; 81001; 82550; 82570; 82948; 83605; 83735; 84100; 84134; 84300; 84443; 84484; 85025; 85610; 85730; 93005; 96365; 96366; 96368; 96375; 96376; J1815; J2270; J2405; J7030; J7042; J7050; J7070; J7120; P9612; 92610-GN; 97116-GP; 97530-GP